=== PATIENT | female | born 1975 | race Caucasian/White ===

== ENCOUNTER → 2018-01-07 | Outpatient (CLI) | payer OTHER ==
[~2018-01-07] MED LIST: GADOBUTROL 10 MMOL/10 ML VIAL ONE
[2018-01-07 12:48] LABS: BASOPHILS # (AUTO) 0.05 x10^3/uL (0-0.1); BASOPHILS % (AUTO) 1 % (0-1); EOSINOPHILS # (AUTO) 0.07 x10^3/uL (0-0.4); EOSINOPHILS % (AUTO) 1 % (1-7); HCT (SEDRATE) 45.2 % (34.6-47.8); LYMPHOCYTES # (AUTO) 1.52 x10^3/uL (1-3.4); LYMPHOCYTES % (AUTO) 18 % (22-44); MD NO; MEAN CORPUSCULAR HEMOGLOBIN 30.9 pg (27.0-34.8); MEAN CORPUSCULAR HGB CONC 33.7 g/dL (32.4-35.8); MEAN CORPUSCULAR VOLUME 91.8 fL (80-100); MEAN PLATELET VOLUME 8.9 fL (7.4-10.4); MONOCYTES % (AUTO) 7 % (2-9); NEUTROPHILS # (AUTO) 6.26 x10^3/uL (1.8-6.8); NEUTROPHILS % (AUTO) 74 % (42-75); PLATELET COUNT 322 x10^3/uL (130-400); RED BLOOD COUNT 4.93 x10^6/uL (3.82-5.3); RED CELL DISTRIBUTION WIDTH 13.2 % (9.6-15.2)
[2018-01-07 12:50] LABS: INTERNATIONAL NORMALIZED RATIO 1.09 (0.93-1.1); PROTHROMBIN TIME 11.2 Seconds (9.6-11.5)
[2018-01-07 12:54] LABS: ALANINE AMINOTRANSFERASE 20 U/L (12-78); ALBUMIN 4.1 g/dL (3.4-5.0); ANION GAP 9 mmol/L (5-15); C-REACTIVE PROTEIN, QUANT 0.04 mg/dL (0.02-0.49); CALCIUM 8.7 mg/dL (8.5-10.1); CHLORIDE 105 mmol/L (98-107); CREATININE 0.84 mg/dL (0.55-1.02)
[2018-01-07 12:56] LABS: ALKALINE PHOSPHATASE 33 U/L (45-117); BILIRUBIN,TOTAL 0.5 mg/dL (0.2-1.0); TOTAL PROTEIN 7.9 g/dL (6.4-8.2)
== END | disposition home or self-care (01) ==
LOC: RAD 12:16
PROVIDERS: ATTEND Optometrist
DX: H47.10 Unspecified papilledema (principal)
CPT/HCPCS: 36415; 70546; 70553; 80053; 85025; 85610; 85651; 85730; 86038; 86140; 86592; A9585

== ENCOUNTER 2018-01-10 12:29 | Emergency (ER) | payer OTHER ==
[~2018-01-10] VITALS: Ht 152.4 cm; Wt 68.1 kg
[2018-01-10 13:50] LABS: BASOPHILS # (AUTO) 0.06 x10^3/uL (0-0.1); BASOPHILS % (AUTO) 1 % (0-1); EOSINOPHILS # (AUTO) 0.04 x10^3/uL (0-0.4); EOSINOPHILS % (AUTO) 0 % (1-7); HCT (SEDRATE) 42.7 % (34.6-47.8); LYMPHOCYTES # (AUTO) 1.25 x10^3/uL (1-3.4); LYMPHOCYTES % (AUTO) 14 % (22-44); MD NO; MEAN CORPUSCULAR HEMOGLOBIN 31.2 pg (27.0-34.8); MEAN CORPUSCULAR HGB CONC 33.9 g/dL (32.4-35.8); MEAN CORPUSCULAR VOLUME 91.8 fL (80-100); MONOCYTES # (AUTO) 0.56 x10^3/uL (0.2-0.8); MONOCYTES % (AUTO) 6 % (2-9); NEUTROPHILS # (AUTO) 6.84 x10^3/uL (1.8-6.8); NEUTROPHILS % (AUTO) 78 % (42-75); PLATELET COUNT 316 x10^3/uL (130-400); RED BLOOD COUNT 4.65 x10^6/uL (3.82-5.3); RED CELL DISTRIBUTION WIDTH 13.2 % (9.6-15.2)
[2018-01-10 14:00] LABS: ALBUMIN 4.2 g/dL (3.4-5.0); ANION GAP 6 mmol/L (5-15); C-REACTIVE PROTEIN, QUANT 0.04 mg/dL (0.02-0.49); CALCIUM 8.5 mg/dL (8.5-10.1); CHLORIDE 107 mmol/L (98-107); CREATININE 0.78 mg/dL (0.55-1.02)
[2018-01-10] MEDS ORDERED: LIDOCAINE 1%, 20ML ONE (14:04)
[2018-01-10 14:34] LABS: SEDIMENTATION RATE 9 mm/hr (0-20)
[2018-01-10 15:55] LABS: T4 (THYROXINE) 11.7 mcg/dL (4.8-13.9); THYROID STIMULATING HORMONE 2.03 mIU/L (0.358-3.740)
[2018-01-10 16:04] VITALS: BP 130/73
== END 2018-01-10 16:07 | disposition home or self-care (01) ==
LOC: ED 16:01
DX: H54.3 Unqualified visual loss, both eyes (principal)
CPT/HCPCS: 36415; 62270; 80048; 82040; 82042; 82164; 82784; 82945; 83520; 83873; 84157; 84436; 84443; 84481; 85025; 85549; 85651; 86140; 86147; 86256; 86592; 86645; 86695; 86696; 86762; 86777; 86778; 87070; 87075; 87102; 87116; 87205; 87206; 87899; 88108; 89051; 99285; J3490

== ENCOUNTER → 2018-01-17 | Outpatient (CLI) | payer OTHER ==
[~2018-01-17] MED LIST changes: +CETI10TA24 PO; -GADOBUTROL 10 MMOL/10 ML VIAL ONE; +GADOBUTROL 7.5 MMOL/7.5 ML PFS ONE; +LEVO175T2 PO; +MONT10TA6 PO
== END | disposition home or self-care (01) ==
LOC: RAD 17:57
PROVIDERS: ATTEND Family Medicine
DX: M47.894 Other spondylosis, thoracic region (principal); H46.9 Unspecified optic neuritis; G35 Multiple sclerosis
CPT/HCPCS: 72156; 72157; A9585

== ENCOUNTER → 2018-01-23 | Outpatient (CLI) | payer OTHER | END | disposition home or self-care (01) | LOC: CFH 10:53 | PROVIDERS: ATTEND Family Medicine | DX: M51.26 Other intervertebral disc displacement, lumbar region (principal); H46.9 Unspecified optic neuritis | CPT/HCPCS: 72158; A9585 ==

== ENCOUNTER → 2018-05-06 | Outpatient (CLI) | payer OTHER ==
[~2018-05-06] MED LIST changes: +BACL-19 PO
== END | disposition home or self-care (01) ==
LOC: RAD 06:53
PROVIDERS: ATTEND Family Medicine
DX: M47.892 Other spondylosis, cervical region (principal); R41.840 Attention and concentration deficit
CPT/HCPCS: 70553; 72156; A9585

== ENCOUNTER → 2019-01-22 | Outpatient (CLI) | payer OTHER ==
[~2019-01-22] MED LIST changes: +IRON1TAB60 PO; +MAGN400T36 PO; +POTA99TA2 PO; +UBIQ100C3 PO
== END | disposition home or self-care (01) ==
LOC: CFH 07:28
PROVIDERS: ATTEND Family Medicine
DX: M47.812 Spondylosis without myelopathy or radiculopathy, cervical region (principal); Z86.69 Personal history of other diseases of the nervous system and sense organs; Z88.1 Allergy status to other antibiotic agents; Z88.8 Allergy status to other drugs, medicaments and biological substances
CPT/HCPCS: 70553; 72156; A9585

== ENCOUNTER → 2019-02-02 | Outpatient (CLI) | payer OTHER ==
[~2019-02-02] MED LIST changes: -GADOBUTROL 7.5 MMOL/7.5 ML PFS ONE; +OMNIPAQUE 350 MG/ML, 100ML BOTTLE ONE
== END | disposition home or self-care (01) ==
LOC: CFH 09:26
PROVIDERS: ATTEND Family Medicine
DX: K80.20 Calculus of gallbladder without cholecystitis without obstruction (principal); C73 Malignant neoplasm of thyroid gland; R07.9 Chest pain, unspecified; R25.2 Cramp and spasm
CPT/HCPCS: 71260; 74177; Q9967

== ENCOUNTER → 2019-10-08 | Outpatient (CLI) | payer OTHER ==
[~2019-10-08] MED LIST changes: -OMNIPAQUE 350 MG/ML, 100ML BOTTLE ONE
[2019-10-08 08:36] LABS: CALCIUM 8.8 mg/dL (8.5-10.1)
[2019-10-08 08:52] LABS: FREE T4 (FREE THYROXINE) 1.45 ng/dL (0.76-1.46)
== END | disposition home or self-care (01) ==
LOC: LAB 08:10
PROVIDERS: ATTEND Internal Medicine Endocrinology, Diabetes & Metabolism
DX: E20.9 Hypoparathyroidism, unspecified (principal); E03.9 Hypothyroidism, unspecified; E83.51 Hypocalcemia; E55.9 Vitamin D deficiency, unspecified; Z88.1 Allergy status to other antibiotic agents; Z88.7 Allergy status to serum and vaccine; Z88.8 Allergy status to other drugs, medicaments and biological substances
CPT/HCPCS: 36415; 82306; 82310; 82330; 83970; 84439; 84443; 84480; 84481

== ENCOUNTER → 2020-04-04 | Outpatient (CLI) | payer OTHER ==
[~2020-04-04] MED LIST changes: -CETI10TA24 PO; +CETI10TA26 PO
[2020-04-04 09:14] LABS: CALCIUM 8.5 mg/dL (8.5-10.1)
[2020-04-04 09:45] LABS: FREE T4 (FREE THYROXINE) 1.76 ng/dL (0.76-1.46)
== END | disposition home or self-care (01) ==
LOC: LAB 08:54
PROVIDERS: ATTEND Internal Medicine Endocrinology, Diabetes & Metabolism
DX: E55.9 Vitamin D deficiency, unspecified (principal); E89.0 Postprocedural hypothyroidism
CPT/HCPCS: 36415; 82306; 82310; 82330; 83970; 84100; 84439; 84443; 84480; 84481

== ENCOUNTER 2020-05-03 05:25 | Emergency (ER) | payer OTHER ==
[~2020-05-03] VITALS: Ht 170.2 cm; Wt 71.4 kg
[2020-05-03] MEDS ORDERED: LIOT5TAB10 PO (05:44)
[2020-05-03] MEDS ORDERED: MORPHINE SULFATE 4 MG/ML, 1ML ONE ×2 (05:54→06:50)
[2020-05-03] MEDS ORDERED: ONDANSETRON 2MG/ML, 2ML ONE (05:54)
[2020-05-03] MEDS: MORPHINE SULFATE 4 MG/ML, 1ML IVPush PRN ×2 (05:58→06:53)
--- NOTE | 2020-05-03 05:58 | NUR ---
PT REPORTS OPIATE NAIVE. 2MG MORPHINE GIVEN OVER 2 MINUTES AFTER ZOFRAN.
[2020-05-03] MEDS ORDERED: ONDANSETRON 2MG/ML, 2ML IVPush ONE (06:00)
[2020-05-03] MEDS ORDERED: SODIUM CHLORIDE 0.9% 1,000ML IVBOLUS ONE (06:00)
--- NOTE | 2020-05-03 06:06 | NUR ---
THIS IS A 44 YO F BIB SPOUSE FROM HOME W/ C/O RUQ/RT FLANK PAIN 06/03 THAT STARTED AT 0100 THIS MORNING. 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 PT REPORTS NAUSEA, DENIES VOMITING. PIV STARTED, LABS DRAWN, PT MEDICATED PER EMAR. PT RESTING ON GURNEY, CONNECTED TO ALL MONITORING W/ CALL LIGHT IN REACH AND FAMILY AT BEDSIDE. MARIANN MAY. AWAITING US.
--- NOTE | 2020-05-03 06:09 | NUR ---
PT REPORTS UNABLE TO URINATE AT THIS TIME. AWARE WE NEED URINE SPECIMEN. MED REC DONE.
[2020-05-03 06:10] LABS: BASOPHILS # (AUTO) 0.03 x10^3/uL (0-0.1); BASOPHILS % (AUTO) 0 % (0-1); EOSINOPHILS # (AUTO) 0.11 x10^3/uL (0-0.4); EOSINOPHILS % (AUTO) 1 % (1-7); LYMPHOCYTES # (AUTO) 1.43 x10^3/uL (1-3.4); LYMPHOCYTES % (AUTO) 17 % (22-44); MD NO; MEAN CORPUSCULAR HEMOGLOBIN 31.2 pg (27.0-34.8); MEAN CORPUSCULAR HGB CONC 34.1 g/dL (32.4-35.8); MEAN CORPUSCULAR VOLUME 91.4 fL (80-100); MEAN PLATELET VOLUME 8.7 fL (7.4-10.4); MONOCYTES # (AUTO) 0.57 x10^3/uL (0.2-0.8); MONOCYTES % (AUTO) 7 % (2-9); NEUTROPHILS # (AUTO) 6.52 x10^3/uL (1.8-6.8); NEUTROPHILS % (AUTO) 75 % (42-75); PLATELET COUNT 297 x10^3/uL (130-400); RED BLOOD COUNT 4.39 x10^6/uL (3.82-5.3); RED CELL DISTRIBUTION WIDTH 12.6 % (9.6-15.2)
--- NOTE | 2020-05-03 06:12 | NUR ---
US IN ROOM.
--- NOTE | 2020-05-03 06:20 | NUR ---
PT REPORTS RELIEF OF RT SIDED BACK PAIN. RUQ PAIN NOW 2/10 AFTER MEDS.
[2020-05-03 06:22] LABS: ALANINE AMINOTRANSFERASE 20 U/L (12-78); ALBUMIN 3.7 g/dL (3.4-5.0); ANION GAP 6 mmol/L (5-15); BILIRUBIN, DIRECT 0.2 mg/dL (0.1-0.2); CALCIUM 8.2 mg/dL (8.5-10.1); CHLORIDE 106 mmol/L (98-107); CREATININE 0.81 mg/dL (0.55-1.02)
[2020-05-03 06:25] LABS: ALKALINE PHOSPHATASE 45 U/L (45-117); BILIRUBIN,INDIRECT 0.6 mg/dL (0.0-2.0); BILIRUBIN,TOTAL 0.8 mg/dL (0.2-1.0)
--- NOTE | 2020-05-03 06:32 | NUR ---
PT AMBULATED TO THE W/ A STEADY GAIT. URINE COLLECTED AND WALKED TO LAB. PT RETURNED TO [facility], CONNECTED TO ALL MONITORING, VSS. AWAITING RESULTS.
[2020-05-03 06:54] LABS: MICROSCOPIC INDICATED
--- NOTE | 2020-05-03 07:00 | NUR ---
PT REPORTS PAIN BACK TO 06/03. MEDICATED PER EMAR. REPORT GIVEN TO AURELIA REESE.
--- NOTE | 2020-05-03 07:01 | NUR ---
REPORT RECEIVED FROM MARC REESE.
--- NOTE | 2020-05-03 07:18 | NUR ---
PT STATES PAIN DECREASED, PAIN MEDICATION EFFECTIVE. PT REMAINS ON MONITORS, VSS. FAMILY AT BEDSIDE. CONT TO MONITOR.
[2020-05-03] MEDS ORDERED: KETOROLAC 30 MG/1 ML ONE (07:55)
[2020-05-03] MEDS ORDERED: KETOROLAC 30 MG/1 ML IVPush ONE (08:00)
--- NOTE | 2020-05-03 08:12 | NUR ---
ERMD BACK AT BEDSIDE FOR REASSESSMENT.
--- NOTE | 2020-05-03 08:55 | NUR ---
PT D/C'D PER ORDERS. PT VERBALIZED UNDERSTANDING OF D/C PAPERWORK, HAS ALL OWN BELONINGS UPON D/C.
[2020-05-03 08:56] VITALS: BP 106/73
== END 2020-05-03 08:58 | disposition home or self-care (01) ==
LOC: ED 06:45
DX: R10.11 Right upper quadrant pain (principal); R11.0 Nausea; Z90.49 Acquired absence of other specified parts of digestive tract
CPT/HCPCS: 36415; 76700; 80053; 81001; 82247; 82248; 83690; 85025; 87086; 96374; 96375; 96376; 99285; J1885; J2270; J2405; J7030

== ENCOUNTER 2020-05-06 09:35 | Day surgery (SDC) | payer OTHER ==
[~2020-05-06] VITALS: Ht 168.9 cm; Wt 70.0 kg
[~2020-05-06 09:35] MED LIST changes: +LIOT5TAB10 PO
[2020-05-06] MEDS ORDERED: FENTANYL PF 250 MCG/5ML ONE (09:40)
[2020-05-06] MEDS ORDERED: MIDAZOLAM 1 MG/ML, 2ML ONE (09:40)
[2020-05-06] MEDS ORDERED: BUPIVACAINE/PF-EPI 0.5% 1:200K ONE (09:41)
[2020-05-06] MEDS ORDERED: LACTATED RINGERS 1,000 ML IV SCH (09:48)
[2020-05-06] MEDS ORDERED: CHLORHEXIDINE 15 ML UDC MM STA (09:48)
[2020-05-06] MEDS ORDERED: CHLORHEXIDINE 15 ML UDC ONE (09:52)
[2020-05-06 09:59] VITALS: BP 112/75
[2020-05-06] MEDS ORDERED: PLEASE ENTER HEIGHT AND WEIGHT MC SCH (10:00)
[2020-05-06] MEDS ORDERED: HYDROmorphone 1 MG/ML, 1ML INJ IVPush PRN (10:00)
[2020-05-06] MEDS ORDERED: ACETAMINOPHEN 325 MG TABLET PO PRN (10:00)
[2020-05-06] MEDS ORDERED: ALBUTEROL SULFATE 2.5 MG/3 ML NPPB PRN (10:00)
[2020-05-06] MEDS ORDERED: LORazepam 2 MG/ML, 1ML IVPush PRN (10:00)
[2020-05-06] MEDS ORDERED: METOCLOPRAMIDE 5 MG/ML, 2ML IVPush PRN (10:00)
[2020-05-06] MEDS ORDERED: ONDANSETRON 2MG/ML, 2ML IVPush PRN (10:00)
[2020-05-06] MEDS ORDERED: CAND1TAB13 PO (10:05)
[2020-05-06] MEDS ORDERED: DULO20CA45 PO (10:05)
[2020-05-06 10:15] LABS: HCG UR SG 1.029 (1.003-1.030)
[2020-05-06] MEDS ORDERED: BUPIVACAINE/PF-EPI 0.5% 1:200K INFIL ONE (10:48)
[2020-05-06] MEDS ORDERED: ROCURONIUM 10MG/ML,5ML ONE (10:57)
[2020-05-06] MEDS ORDERED: DEXAMETHASONE 4 MG/ML, 1ML ONE (10:57)
[2020-05-06] MEDS ORDERED: SUGAMMADEX 200 MG/2 ML IVPush ONE (10:57)
[2020-05-06] MEDS ORDERED: ONDANSETRON 2MG/ML, 2ML ONE (10:57)
[2020-05-06] MEDS ORDERED: CEFAZOLIN 1,000 MG ONE (10:57)
[2020-05-06] MEDS ORDERED: NEOSTIGMINE 1 MG/ML, 10ML ONE (10:57)
[2020-05-06] MEDS ORDERED: LIDOCAINE-MPF 2% ,5ML ONE (10:57)
[2020-05-06] MEDS ORDERED: SUCCINYLCHOLINE 20 MG/ML, 10ML ONE (10:57)
[2020-05-06] MEDS ORDERED: GLYCOPYRROLATE 0.2MG/1ML, 5ML ONE (10:57)
[2020-05-06] MEDS ORDERED: PROPOFOL 10 MG/ML, 20ML ONE (10:57)
[2020-05-06] MEDS ORDERED: ACETAMINOPHEN 650 MG/20.3 ML UDC ONE (11:51)
[2020-05-06] MEDS ORDERED: FENTANYL PF 100 MCG/2ML ONE (11:51)
[2020-05-06] MEDS ORDERED: OXYcodone 5 MG/5 ML ORAL.SOL UDC ONE (11:51)
[2020-05-06] MEDS: OXYcodone 5 MG/5 ML ORAL.SOL UDC PO PRN ×2 (11:56→13:46)
[2020-05-06] MEDS: FENTANYL PF 100 MCG/2ML IV PRN ×4 (11:56→12:18)
== END 2020-05-06 14:00 | disposition home or self-care (01) ==
LOC: OUT 09:35
PROVIDERS: ATTEND Surgery
DX: K80.12 Calculus of gallbladder with acute and chronic cholecystitis without obstruction (principal); Z11.59 Encounter for screening for other viral diseases; J45.909 Unspecified asthma, uncomplicated; E89.0 Postprocedural hypothyroidism; Z85.850 Personal history of malignant neoplasm of thyroid; Z88.8 Allergy status to other drugs, medicaments and biological substances
CPT/HCPCS: 47562; 81025; 87635; 88304; J0330; J0690; J1100; J2250; J2405; J2704; J2710; J3010

== ENCOUNTER 2021-03-01 18:32 | Emergency (ER) | payer OTHER ==
[~2021-03-01] VITALS: Ht 170.2 cm; Wt 70.7 kg
[~2021-03-01 18:32] MED LIST changes: +CAND1TAB13 PO; -CETI10TA26 PO; +CETI10TA76 PO; +DULO20CA45 PO
[2021-03-01 18:34] VITALS: BP 128/76
--- NOTE | 2021-03-01 18:42 | NUR ---
PT AMBULATED TO ROOM FROM TRIAGE. PT IS EMPLOYEE HERE AT [employer] AND WAS TRYING TO SHOVE A TOWEL UNDER A PT AND INJURED HER LEFT MIDDLE FINGER. FINGER WITH OBVIOUS DEFORMITY AT DISTAL JOINT AND UNABLE TO MOVE.
--- NOTE | 2021-03-01 19:17 | NUR ---
Jaymie seay in [facility] - 03/01/21 at 1946 by VIVI PT TRANSFERRED TO FLOOR
--- NOTE | 2021-03-01 19:46 | NUR ---
SPLINT APPLIED. DISCHARGE INSTRUCTIONS REVIEWED WITH PT. ALL QUESTIONS ANSWERED AT THIS TIME.
== END 2021-03-01 19:50 | disposition home or self-care (01) ==
LOC: ED 19:44
DX: M20.012 Mallet finger of left finger(s) (principal); J45.909 Unspecified asthma, uncomplicated; E03.9 Hypothyroidism, unspecified; Z85.850 Personal history of malignant neoplasm of thyroid
CPT/HCPCS: 29125; 29130; 99283

== ENCOUNTER 2021-05-15 01:50 | Emergency (ER) | payer OTHER ==
[~2021-05-15] VITALS: Ht 170.2 cm; Wt 72.0 kg
[~2021-05-15 01:50] MED LIST changes: +UBIQ100C2 PO; -UBIQ100C3 PO
[2021-05-15] MEDS ORDERED: ONDANSETRON 2MG/ML, 2ML ONE (02:16)
[2021-05-15] MEDS ORDERED: HYDROmorphone 1 MG/ML, 1ML INJ ONE (02:16)
[2021-05-15] MEDS ORDERED: KETOROLAC 30 MG/1 ML ONE (02:16)
[2021-05-15] MEDS ORDERED: KETOROLAC 30 MG/1 ML IV ONE (02:30)
[2021-05-15] MEDS ORDERED: ONDANSETRON 2MG/ML, 2ML IVPush ONE (02:30)
[2021-05-15] MEDS ORDERED: HYDROmorphone 1 MG/ML, 1ML INJ IVPush PRN (02:30)
[2021-05-15 02:36] VITALS: BP 121/58
== END 2021-05-15 04:28 | disposition home or self-care (01) ==
LOC: ED 02:28
DX: S82.874A Nondisplaced pilon fracture of right tibia, initial encounter for closed fracture (principal); S82.62XA Displaced fracture of lateral malleolus of left fibula, initial encounter for closed fracture; M25.571 Pain in right ankle and joints of right foot; J45.909 Unspecified asthma, uncomplicated; E03.9 Hypothyroidism, unspecified; X58.XXXA Exposure to other specified factors, initial encounter; Y93.89 Activity, other specified; Y92.89 Other specified places as the place of occurrence of the external cause; Y99.8 Other external cause status
CPT/HCPCS: 29515; 73590; 73610; 96374; 96375; 99284; J1170; J1885; J2405

== ENCOUNTER 2021-05-17 11:21 | Observation (INO) | payer OTHER ==
[~2021-05-17] VITALS: Ht 167.6 cm; Wt 72.0 kg
--- NOTE | 2021-05-17 11:36 | NUR ---
ARTISAN PLASTERER: NOTE IN COMMENTS THAT PT HAD LEFT AMA. DISCUSSED WITH YUNIOR TRIAGE NURSE. PT IN A LOT OF PAIN AND NEEDS TO HAVE SURGERY. YUNIOR CALLED PT, PT WAS CALLED BY OR AND TOLD TO REGISTER FOR SURGERY. PT LEFT ED WAITING AREA. PT INSTRUCTED BY YUNIOR TO RETURN TO ED. PT BROUGHT BACK TO ROOM VIA W/C. CALL TO PRE-OP. PT TO HAVE SURGERY AT 1700, NO HOLDING ORDERS AT THIS TIME. PT RE-REGISTERED IN ED. PT STATES "HAS BROKEN TIB/FIB ON SAT, DISLOCATION WAS REDUCED. I'M TO HAVE SURGERY TODAY. I'M IN EXCRUCIATING PAIN AND AM OUT OF PAIN MEDS." PTS LEDA AT BEDSIDE.
[2021-05-17] MEDS ORDERED: D5%-0.45% NACL 1,000 ML IV ONE ×2 (11:39→14:00)
--- NOTE | 2021-05-17 11:54 | NUR ---
IV STARTED, RAPID COVID SWAB COLLECTED AND WALKED TO LAB.
[2021-05-17] MEDS ORDERED: HYDROmorphone 1 MG/ML, 1ML INJ ONE (11:57)
[2021-05-17] MEDS ORDERED: ONDANSETRON 2MG/ML, 2ML ONE ×2 (11:57→19:07)
[2021-05-17] MEDS ORDERED: ONDANSETRON 2MG/ML, 2ML IVPush ONE (12:00)
[2021-05-17] MEDS ORDERED: HYDROmorphone 1 MG/ML, 1ML INJ IVPush PRN ×3 (12:00→19:30)
--- NOTE | 2021-05-17 12:07 | NUR ---
PT MEDICATED FOR 06/03 PAIN. IV FLUIDS STARTED.
--- NOTE | 2021-05-17 12:08 | NUR ---
LAST PO INTAKE AT 2345 LAST NIGHT "EXCEPT FOR A SIP OF WATER TODAY"
--- NOTE | 2021-05-17 12:19 | NUR ---
PAIN DECREASED TO 3/10. SATS 98% RA
--- NOTE | 2021-05-17 12:57 | NUR ---
LUNCH RN. PATIENT STATES PAIN 3/10 WITH RELIEF FROM DILAUDID. VITAL SIGNS REMAIN STABLE. ED MD TO BEDSIDE REQUEST TO TAKE OFF SPLINT TO CHECK FROM COMPARTMENT SYNDROME.
[2021-05-17 13:05] LABS: BASOPHILS % (AUTO) 0 % (0-1); EOSINOPHILS % (AUTO) 2 % (1-7); LYMPHOCYTES % (AUTO) 17 % (22-44); MEAN CORPUSCULAR HEMOGLOBIN 31.1 pg (27.0-34.8); MEAN CORPUSCULAR HGB CONC 34.3 g/dL (32.4-35.8); MEAN PLATELET VOLUME 8.2 fL (7.4-10.4); MONOCYTES % (AUTO) 7 % (2-9); NEUTROPHILS % (AUTO) 74 % (42-75); PLATELET COUNT 320 x10^3/uL (130-400); RED BLOOD COUNT 4.22 x10^6/uL (3.82-5.3); RED CELL DISTRIBUTION WIDTH 12.7 % (9.6-15.2)
[2021-05-17 13:14] LABS: ALBUMIN 3.4 g/dL (3.4-5.0); ANION GAP 7 mmol/L (5-15); CALCIUM 8.5 mg/dL (8.5-10.1); CHLORIDE 106 mmol/L (98-107); CREATININE 0.56 mg/dL (0.55-1.02)
[2021-05-17 13:18] LABS: INTERNATIONAL NORMALIZED RATIO 0.98 (0.93-1.1); PROTHROMBIN TIME 10.5 Seconds (9.6-11.5)
[2021-05-17] MEDS ORDERED: SODIUM CHLORIDE FLUSH 10ML SYR IVF PRN (14:00)
[2021-05-17] MEDS ORDERED: ONDANSETRON 2MG/ML, 2ML IVPush PRN ×2 (14:00→19:30)
--- NOTE | 2021-05-17 14:11 | NUR ---
REPORT TO SHIRLEY REESE, POC DISCUSSED
[2021-05-17 14:32] VITALS: BP 116/75
[2021-05-17 17:34] LABS: HCG UR SG 1.011 (1.003-1.030)
[2021-05-17] MEDS ORDERED: EPINEPHRINE 1 MG/ML, 1ML ONE (17:58)
[2021-05-17] MEDS ORDERED: BUPIVACAINE/PF 0.5% ONE (17:58)
[2021-05-17] MEDS ORDERED: MIDAZOLAM 1 MG/ML, 2ML ONE (18:10)
[2021-05-17] MEDS ORDERED: FENTANYL PF 250 MCG/5ML ONE (18:11)
[2021-05-17] MEDS ORDERED: PROPOFOL 100 ML ONE (18:32)
[2021-05-17] MEDS ORDERED: DEXAMETHASONE 4 MG/ML, 1ML ONE (18:34)
[2021-05-17] MEDS ORDERED: CEFAZOLIN 1,000 MG ONE (19:07)
[2021-05-17] MEDS ORDERED: PROPOFOL 10 MG/ML, 20ML ONE (19:07)
[2021-05-17] MEDS ORDERED: PROMETHAZINE 25 MG SUPP PR PRN (19:30)
[2021-05-17] MEDS ORDERED: FENTANYL PF 100 MCG/2ML IV PRN (19:30)
[2021-05-17] MEDS ORDERED: PROMETHAZINE 25 MG/ML, 1ML IVPush PRN (19:30)
[2021-05-17] MEDS ORDERED: LORazepam 2 MG/ML, 1ML IVPush PRN (19:30)
[2021-05-17] MEDS ORDERED: ACETAMINOPHEN 325 MG TABLET PO PRN (19:30)
[2021-05-17] MEDS ORDERED: OXYcodone 5 MG/5 ML ORAL.SOL UDC PO PRN (19:30)
[2021-05-17] MEDS ORDERED: MEPERIDINE/PF 25MG/0.5ML IVPush PRN (19:30)
[2021-05-17] MEDS ORDERED: METHOCARBAMOL 1,000 MG in DEXTROSE 5% 100 ML IV PRN (19:30)
[2021-05-17 20:33] VITALS: BP 101/60
== END 2021-05-17 22:24 | disposition home or self-care (01) ==
LOC: ED 12:52 → EDIP 13:39 → 4NE 14:22
PROVIDERS: ADMIT Orthopaedic Surgery; ATTEND Orthopaedic Surgery
DX: S82.842A Displaced bimalleolar fracture of left lower leg, initial encounter for closed fracture (principal); Z20.822 Contact with and (suspected) exposure to COVID-19; S82.202A Unspecified fracture of shaft of left tibia, initial encounter for closed fracture; S82.402A Unspecified fracture of shaft of left fibula, initial encounter for closed fracture; S93.432A Sprain of tibiofibular ligament of left ankle, initial encounter; J45.909 Unspecified asthma, uncomplicated; E03.9 Hypothyroidism, unspecified; Z85.850 Personal history of malignant neoplasm of thyroid; Z79.899 Other long term (current) drug therapy; W19.XXXA Unspecified fall, initial encounter; Y93.89 Activity, other specified; Y92.89 Other specified places as the place of occurrence of the external cause
CPT/HCPCS: 27814; 27829; 36415; 73600; 80048; 81025; 82040; 84703; 85025; 85610; 85730; 87635; 93005; 96361; 96374; 96375; 96376; 99284; C1713; G0378; J0690; J1100; J1170; J2250; J2405; J2704; J3010; 76000; J0171

== ENCOUNTER 2021-08-11 08:49 | Day surgery (SDC) | payer OTHER ==
[~2021-08-11] VITALS: Ht 170.2 cm; Wt 72.3 kg
[2021-08-11 09:15] VITALS: BP 117/79
[2021-08-11] MEDS ORDERED: CHLORHEXIDINE 15 ML UDC ONE (09:20)
[2021-08-11] MEDS ORDERED: CHLORHEXIDINE 15 ML UDC PO ONE (09:30)
[2021-08-11] MEDS ORDERED: LACTATED RINGERS 1,000 ML IV SCH (09:30)
[2021-08-11] MEDS ORDERED: LIDOCAINE-MPF 1%, 2ML ONE (09:41)
[2021-08-11 09:43] LABS: HCG UR SG 1.008 (1.003-1.030)
[2021-08-11] MEDS ORDERED: GABAPENTIN PO (09:50)
[2021-08-11] MEDS ORDERED: LIDOCAINE-MPF 1%, 2ML INFIL ONE (10:00)
[2021-08-11] MEDS ORDERED: MIDAZOLAM 1 MG/ML, 2ML ONE (10:56)
[2021-08-11] MEDS ORDERED: FENTANYL PF 100 MCG/2ML ONE (10:56)
[2021-08-11] MEDS ORDERED: BUPIVACAINE/PF 0.5% ONE (10:58)
[2021-08-11] MEDS ORDERED: EPINEPHRINE 1 MG/ML, 1ML ONE (10:59)
[2021-08-11] MEDS ORDERED: MEPERIDINE/PF 25MG/0.5ML IVPush PRN (11:30)
[2021-08-11] MEDS ORDERED: KETOROLAC 30 MG/1 ML IVPush PRN (11:30)
[2021-08-11] MEDS ORDERED: OXYcodone 5 MG/5 ML ORAL.SOL UDC PO PRN (11:30)
[2021-08-11] MEDS ORDERED: ACETAMINOPHEN 325 MG TABLET PO PRN (11:30)
[2021-08-11] MEDS ORDERED: FENTANYL PF 100 MCG/2ML IV PRN (11:30)
[2021-08-11] MEDS ORDERED: HYDROcodone/APAP 7.5-325MG/15ML UDC PO PRN (11:30)
[2021-08-11] MEDS ORDERED: ONDANSETRON 2MG/ML, 2ML IVPush PRN (11:30)
[2021-08-11] MEDS ORDERED: HYDROmorphone 1 MG/ML, 1ML INJ IVPush PRN (11:30)
== END 2021-08-11 13:35 | disposition home or self-care (01) ==
LOC: OUT 08:49
PROVIDERS: ATTEND Orthopaedic Surgery
DX: T84.84XA Pain due to internal orthopedic prosthetic devices, implants and grafts, initial encounter (principal); Z20.822 Contact with and (suspected) exposure to COVID-19; Z79.890 Hormone replacement therapy; Z79.899 Other long term (current) drug therapy; Z88.8 Allergy status to other drugs, medicaments and biological substances; Y83.8 Other surgical procedures as the cause of abnormal reaction of the patient, or of later complication, without mention of misadventure at the time of the procedure
CPT/HCPCS: 20680; 73600; 81025; 87635; J0171; J2250; J3010; J7120; 76000